=== PATIENT | male | born 1950 | race African-American/Black ===

== ENCOUNTER 2021-03-16 05:10 | Emergency (ER) | payer MEDICAID ==
[~2021-03-16] VITALS: Ht 177.8 cm; Wt 96.0 kg
[2021-03-16] MEDS ORDERED: IBUPROFEN 600MG TABLET PO STA (06:42)
[2021-03-16 07:44] VITALS: BP 120/58
[2021-03-16] MEDS ORDERED: IBUP-2029 MT (10:45)
== END 2021-03-16 11:05 | disposition home or self-care (01) ==
LOC: ER 05:20
DX: M79.652 Pain in left thigh (principal); M79.651 Pain in right thigh; M79.89 Other specified soft tissue disorders; M79.662 Pain in left lower leg; M79.661 Pain in right lower leg; I10 Essential (primary) hypertension
CPT/HCPCS: 93970; 99284

== ENCOUNTER 2024-03-23 13:24 | Inpatient (IN) | payer MEDICAID, OTHER ==
[~2024-03-23] VITALS: Ht 175.3 cm; Wt 100.0 kg
[~2024-03-23 13:24] MED LIST: IBUP-2029 MT
[2024-03-23] MEDS: METHYLPREDNISOLONE SOD SUCC 125MG/2ML (ACT-O-VIAL) IV STA (13:53)
[2024-03-23] MEDS: MAGNESIUM 2 G PREMIX 50 ML IV ONE (13:53)
[2024-03-23 14:00] LABS: BASOPHILS % 0.8 % (0.0-2.0); EOSINOPHILS % 6.7 % (0.0-5.0); HEMATOCRIT. 37.6 % (42.0-52.0); HEMOGLOBIN. 12.5 g/dL (14.0-18.0); MEAN CORPUSCULAR HEMOGLOBIN 29.5 pg (28.0-32.0); MEAN CORPUSCULAR HGB CONC 33.4 g/dL (31.0-37.0); MEAN CORPUSCULAR VOLUME 88.4 fL (80.0-94.0); MEAN PLATELET VOLUME 7.8 fl (7.4-10.4); MONOCYTES % 7.3 % (2.0-8.0); NEUTROPHILS % 55.2 % (40.0-76.0); PLATELET 246 x1000/uL (130-400); RED BLOOD CELL COUNT 4.25 mill/uL (4.7-6.1); RED CELL DISTRIBUTION WIDTH 13.7 % (11.6-14.6); WHITE BLOOD COUNT 5.1 x1000/uL (4.5-11.0)
[2024-03-23 14:05] VITALS: PULSE 82; RESP 24; O2SAT 96
[2024-03-23 14:10] LABS: CHLORIDE 108 mEq/L (98-107); POTASSIUM 3.9 mEq/L (3.5-5.1); SODIUM 139 mEq/L (136-145)
[2024-03-23 14:11] LABS: CARBON DIOXIDE 22 mEq/L (21-32)
[2024-03-23 14:12] LABS: CALCIUM 8.9 mg/dL (8.7-10.4)
[2024-03-23 14:16] LABS: CREATININE 1.3 mg/dL (0.6-1.3); GLUCOSE 176 mg/dL (70-105)
[2024-03-23 14:17] LABS: UREA NITROGEN BLOOD 16 mg/dL (9-23)
[2024-03-23] MEDS: ALBUTEROL (0.083%) 2.5MG/3ML NEB HHN SCH (14:30)
[2024-03-23 14:31] LABS: TROPONIN I HIGH SENSITIVITY 591 ng/L (3.0-53)
[2024-03-23] MEDS: CEFTRIAXONE 1GM/50ML 50 ML IV NR (14:35)
[2024-03-23] MEDS: IPRATROPIUM BROMIDE (0.02%) 0.5MG/2.5ML NEB HHN STA (15:00)
[2024-03-23] MEDS: AZITHROMYCIN 500MG/250ML 250 ML IV NR (15:12)
[2024-03-23] MEDS: ASPIRIN 325MG EC TABLET PO NR (16:13)
[2024-03-23] MEDS ORDERED: ACETAMINOPHEN 325MG TABLET PO PRN (17:45)
[2024-03-23] MEDS ORDERED: GUAIFENESIN 200MG/10ML SUGAR FREE UDC PO PRN (17:45)
[2024-03-23] MEDS ORDERED: DOCUSATE SODIUM 100MG CAPSULE PO PRN (17:45)
[2024-03-23] MEDS ORDERED: MAGNESIUM/ALUMINUM HYDROXIDE/SIMETHICONE 30ML UDC PO PRN (17:45)
[2024-03-23] MEDS ORDERED: DEXTROSE 50% WATER 50ML SYRINGE IV PRN (17:45)
[2024-03-23] MEDS ORDERED: IPRATROPIUM/ALBUTEROL 0.5-3(2.5)MG/3ML NEB HHN PRN (17:45)
[2024-03-23] MEDS ORDERED: ONDANSETRON HCL 4MG/2ML INJ IV PRN (17:45)
[2024-03-23] MEDS ORDERED: CLONIDINE 0.1MG TABLET PO PRN (17:45)
[2024-03-23] MEDS ORDERED: ENOXAPARIN 40MG/0.4ML SYR SUBCUT SCH (18:00)
[2024-03-23] MEDS: BLOOD SUGAR DIAGNOSTIC STRIP TEST SCH (18:00)
[2024-03-23] MEDS ORDERED: NALOXONE HCL 0.4MG/ML VIAL IV PRN (18:30)
[2024-03-23] MEDS: INSULIN LISPRO 100 UNITS/ML SUBCUT SCH (21:00)
[2024-03-23] MEDS: FUROSEMIDE 40MG/4ML VIAL IV NR (21:37)
[2024-03-23] MEDS: ACETAMINOPHEN 325MG TABLET PO PRN (21:38)
[2024-03-23] MEDS: ENOXAPARIN 40MG/0.4ML SYR SUBCUT NR (21:39)
[2024-03-23] MEDS: IOHEXOL-350 100 ML BOTTLE ONE (23:42)
[2024-03-24 01:30] VITALS: BP 129/61; PULSE 79; RESP 18; TEMP 98
[2024-03-24 04:00] VITALS: BP 123/62; PULSE 73; RESP 18; TEMP 96.6
[2024-03-24] MEDS: ENOXAPARIN 30MG/0.3ML SYR SUBCUT SCH (05:57)
[2024-03-24 08:09] VITALS: BP 119/56; PULSE 70; RESP 18; TEMP 97.6
[2024-03-24] MEDS: CEFTRIAXONE 1GM/50ML 50 ML IV SCH (09:23)
[2024-03-24] MEDS: AZITHROMYCIN 500MG/250ML 250 ML IV SCH (09:23)
[2024-03-24] MEDS: FAMOTIDINE 20MG TABLET PO SCH (09:26)
[2024-03-24] MEDS ORDERED: QUET25TA36 PO (09:49)
[2024-03-24] MEDS ORDERED: PROP10TA10 MT (09:49)
[2024-03-24] MEDS ORDERED: IBUP-2030 MT (09:49)
[2024-03-24] MEDS ORDERED: MULT-1146 MT (09:49)
[2024-03-24] MEDS ORDERED: CETI10TA11 MT (09:49)
[2024-03-24] MEDS ORDERED: ESCI20TA37 MT (09:49)
[2024-03-24 10:00] LABS: BASOPHILS % 0.1 % (0.0-2.0); HEMATOCRIT. 34.7 % (42.0-52.0); HEMOGLOBIN. 11.4 g/dL (14.0-18.0); MEAN CORPUSCULAR HGB CONC 32.9 g/dL (31.0-37.0); MEAN CORPUSCULAR VOLUME 88.1 fL (80.0-94.0); MEAN PLATELET VOLUME 8.5 fl (7.4-10.4); MONOCYTES % 2.6 % (2.0-8.0); NEUTROPHILS % 88.3 % (40.0-76.0); PLATELET 239 x1000/uL (130-400); RED BLOOD CELL COUNT 3.94 mill/uL (4.7-6.1); RED CELL DISTRIBUTION WIDTH 14.1 % (11.6-14.6); WHITE BLOOD COUNT 9.7 x1000/uL (4.5-11.0)
[2024-03-24 10:05] LABS: CARBON DIOXIDE 22 mEq/L (21-32); CHLORIDE 105 mEq/L (98-107); SODIUM 138 mEq/L (136-145)
[2024-03-24 10:07] LABS: CALCIUM 8.8 mg/dL (8.7-10.4)
[2024-03-24 10:11] LABS: CREATININE 1.3 mg/dL (0.6-1.3); GLUCOSE 225 mg/dL (70-105)
[2024-03-24 10:12] LABS: LDL CHOLESTEROL 73 mg/dL (5-100); TRIGLYCERIDE 95 mg/dL (0-150); UREA NITROGEN BLOOD 19 mg/dL (9-23)
[2024-03-24 10:13] LABS: CHOLESTEROL 137 mg/dL (<200); HDL CHOLESTEROL 49 mg/dL (>55); THYROID STIMULATING HORMONE 0.38 uIU/mL (0.55-4.78)
[2024-03-24 10:15] LABS: CREATINE KINASE MB FRACTION 3.5 ng/mL (0.5-3.6)
[2024-03-24 11:38] VITALS: BP 106/50; PULSE 72; RESP 19; TEMP 98.7
[2024-03-24 16:05] VITALS: BP 137/65; PULSE 79; RESP 20; TEMP 98.3
[2024-03-24 17:55] LABS: CREATINE KINASE MB FRACTION 3.8 ng/mL (0.5-3.6)
[2024-03-24 17:58] LABS: T4 FREE 0.91 ng/dL (0.89-1.76)
[2024-03-24 18:17] LABS: CLARITY URINE CLEAR (CLEAR); COLOR URINE YELLOW (YELLOW); GLUCOSE URINE NEGATIVE (NEGATIVE); KETONES URINE NEGATIVE (NEGATIVE); LEUKOCYTE ESTERASE URINE NEGATIVE (NEGATIVE); NITRITE URINE NEGATIVE (NEGATIVE); OCCULT BLOOD URINE TRACE (NEGATIVE); PH URINE 6.5 (4.5-8.0); PROTEIN URINE NEGATIVE (NEGATIVE); SPECIFIC GRAVITY URINE 1.013 (1.005-1.030); UROBILINOGEN URINE 0.2 E.U./dL (0.2-1.0)
[2024-03-24 18:26] LABS: *AMPHETAMINES SCREEN URINE NEGATIVE (NEGATIVE); *BARBITURATES SCREEN URINE NEGATIVE (NEGATIVE); *BENZODIAZEPINES SCREEN URINE NEGATIVE (NEGATIVE); *COCAINE SCREEN URINE NEGATIVE (NEGATIVE); CANNABINOID URINE SCREEN NEGATIVE (NEGATIVE); ECSTASY MDMA SCREEN URINE NEGATIVE (NEGATIVE); METHADONE URINE SCREEN NEGATIVE (NEGATIVE); OPIATES URINE SCREEN NEGATIVE (NEGATIVE); PHENCYCLIDINE URINE SCREEN NEGATIVE (NEGATIVE)
[2024-03-24 19:01] LABS: BACTERIA URINE TRACE; RBC URINE 0-2 /hpf (0-2); SQUAMOUS EPITHELIAL CELL URINE RARE /lpf (RARE/1+); WBC URINE 0-2 /hpf (0-2)
[2024-03-24 20:00] VITALS: BP 115/61; PULSE 80; RESP 18; TEMP 98.8
[2024-03-24] MEDS: HYDROCODONE/ACETAMINOPHEN 5/325MG TABLET PO PRN (21:13)
[2024-03-24] MEDS: PROPRANOLOL HCL 10MG TABLET PO SCH (21:13)
[2024-03-25 00:23] VITALS: BP 145/75; PULSE 74; RESP 20; TEMP 97.5
[2024-03-25 04:00] VITALS: BP 138/64; PULSE 71; RESP 18; TEMP 97.5
[2024-03-25] MEDS: GUAIFENESIN 200MG/10ML SUGAR FREE UDC PO SCH (06:19)
[2024-03-25 08:00] VITALS: BP 157/74; PULSE 77; RESP 18; TEMP 97.6
[2024-03-25 12:00] VITALS: BP 142/71; PULSE 73; RESP 20; TEMP 96.7
[2024-03-25 16:00] VITALS: BP 141/70; PULSE 75; RESP 20; TEMP 97.3
[2024-03-25 17:09] LABS: BASOPHILS % 0.7 % (0.0-2.0); EOSINOPHILS % 3.5 % (0.0-5.0); HEMATOCRIT. 33.8 % (42.0-52.0); HEMOGLOBIN. 11.3 g/dL (14.0-18.0); LYMPHOCYTES % 20.7 % (20.0-50.0); MEAN CORPUSCULAR HEMOGLOBIN 29.6 pg (28.0-32.0); MEAN CORPUSCULAR HGB CONC 33.5 g/dL (31.0-37.0); MEAN CORPUSCULAR VOLUME 88.3 fL (80.0-94.0); MEAN PLATELET VOLUME 8.3 fl (7.4-10.4); MONOCYTES % 7.7 % (2.0-8.0); NEUTROPHILS % 67.4 % (40.0-76.0); PLATELET 246 x1000/uL (130-400); RED BLOOD CELL COUNT 3.82 mill/uL (4.7-6.1); RED CELL DISTRIBUTION WIDTH 14.3 % (11.6-14.6); WHITE BLOOD COUNT 8.1 x1000/uL (4.5-11.0)
[2024-03-25 17:17] LABS: CARBON DIOXIDE 25 mEq/L (21-32); CHLORIDE 107 mEq/L (98-107); POTASSIUM 4.1 mEq/L (3.5-5.1); SODIUM 139 mEq/L (136-145)
[2024-03-25 17:19] LABS: CALCIUM 8.8 mg/dL (8.7-10.4)
[2024-03-25 17:23] LABS: CREATININE 1.1 mg/dL (0.6-1.3); GLUCOSE 94 mg/dL (70-105); UREA NITROGEN BLOOD 21 mg/dL (9-23)
[2024-03-25] MEDS: ENOXAPARIN 30MG/0.3ML SYR SUBCUT NR (18:27)
[2024-03-25 20:00] VITALS: BP 147/66; PULSE 78; RESP 19; TEMP 98.5
[2024-03-26] VITALS: BP 150/95; PULSE 79; RESP 19; TEMP 98.8
[2024-03-26 04:00] VITALS: BP 136/93; PULSE 86; RESP 20; TEMP 97.5
[2024-03-26 07:27] LABS: CALCIUM 8.8 mg/dL (8.7-10.4); CARBON DIOXIDE 23 mEq/L (21-32); CHLORIDE 107 mEq/L (98-107); POTASSIUM 3.9 mEq/L (3.5-5.1); SODIUM 138 mEq/L (136-145)
[2024-03-26 07:30] LABS: BASOPHILS % 0.6 % (0.0-2.0); EOSINOPHILS % 3.6 % (0.0-5.0); HEMATOCRIT. 36.3 % (42.0-52.0); HEMOGLOBIN. 11.8 g/dL (14.0-18.0); LYMPHOCYTES % 16.9 % (20.0-50.0); MEAN CORPUSCULAR HEMOGLOBIN 29.2 pg (28.0-32.0); MEAN CORPUSCULAR HGB CONC 32.6 g/dL (31.0-37.0); MEAN CORPUSCULAR VOLUME 89.7 fL (80.0-94.0); MEAN PLATELET VOLUME 8.5 fl (7.4-10.4); MONOCYTES % 10.1 % (2.0-8.0); NEUTROPHILS % 68.8 % (40.0-76.0); PLATELET 248 x1000/uL (130-400); RED BLOOD CELL COUNT 4.04 mill/uL (4.7-6.1); RED CELL DISTRIBUTION WIDTH 14.2 % (11.6-14.6); WHITE BLOOD COUNT 8.7 x1000/uL (4.5-11.0)
[2024-03-26 07:33] LABS: GLUCOSE 94 mg/dL (70-105); UREA NITROGEN BLOOD 17 mg/dL (9-23)
[2024-03-26 08:00] VITALS: BP 132/65; PULSE 75; RESP 18; TEMP 97.5
[2024-03-26] MEDS: QUETIAPINE FUMARATE 25MG TABLET PO SCH (08:19)
[2024-03-26] MEDS: SODIUM CHLORIDE 0.45% 1,000 ML IV ONE ×2 (08:29→11:45)
[2024-03-26] MEDS ORDERED: LIDOCAINE HCL 1% 10 MG/ML 10ML VIAL ONE (08:48)
[2024-03-26] MEDS ORDERED: IODIXANOL 320MG/ML 100 ML BOTTLE IV ONE (08:48)
[2024-03-26] MEDS ORDERED: HEPARIN 1000 UNITS/ML 10ML ONE (08:51)
[2024-03-26] MEDS ORDERED: MIDAZOLAM HCL 2 MG/2 ML VIAL ONE (09:26)
[2024-03-26] MEDS ORDERED: FENTANYL CITRATE/PF 50MCG/ML 2ML VIAL ONE (09:26)
[2024-03-26] MEDS ORDERED: ACETAMINOPHEN 325MG TABLET PO PRN (10:45)
[2024-03-26] MEDS ORDERED: ATROPINE SULFATE 1MG/10ML SYR IV PRN (10:45)
[2024-03-26] MEDS ORDERED: ONDANSETRON HCL 4MG/2ML INJ IV PRN (10:45)
[2024-03-26] MEDS ORDERED: MORPHINE SULFATE 2 MG/ML INJ (NOT FOR IM USE) IV PRN (10:45)
[2024-03-26 11:30] VITALS: BP 108/62; PULSE 75; RESP 20; TEMP 98
[2024-03-26 16:11] VITALS: BP 111/55; PULSE 72; RESP 14; TEMP 98.2
[2024-03-26 20:00] VITALS: BP 145/110; PULSE 90; RESP 18; TEMP 98.2
[2024-03-27] VITALS: BP 129/55; PULSE 63; RESP 15; TEMP 98.3
[2024-03-27 04:00] VITALS: BP 113/45; PULSE 66; RESP 12; TEMP 98.4
[2024-03-27 06:49] LABS: CARBON DIOXIDE 23 mEq/L (21-32); CHLORIDE 108 mEq/L (98-107); POTASSIUM 4.2 mEq/L (3.5-5.1); SODIUM 138 mEq/L (136-145)
[2024-03-27 06:50] LABS: CALCIUM 8.7 mg/dL (8.7-10.4)
[2024-03-27 06:55] LABS: GLUCOSE 114 mg/dL (70-105); UREA NITROGEN BLOOD 17 mg/dL (9-23)
[2024-03-27 07:01] LABS: BASOPHILS % 0.5 % (0.0-2.0); EOSINOPHILS % 6.6 % (0.0-5.0); HEMATOCRIT. 35.2 % (42.0-52.0); HEMOGLOBIN. 11.9 g/dL (14.0-18.0); LYMPHOCYTES % 23.1 % (20.0-50.0); MEAN CORPUSCULAR HEMOGLOBIN 29.7 pg (28.0-32.0); MEAN CORPUSCULAR HGB CONC 33.7 g/dL (31.0-37.0); MEAN PLATELET VOLUME 8.4 fl (7.4-10.4); MONOCYTES % 11.3 % (2.0-8.0); NEUTROPHILS % 58.5 % (40.0-76.0); PLATELET 227 x1000/uL (130-400); RED CELL DISTRIBUTION WIDTH 14.3 % (11.6-14.6); WHITE BLOOD COUNT 6.4 x1000/uL (4.5-11.0)
[2024-03-27 08:38] VITALS: BP 143/68; PULSE 71; RESP 19; TEMP 98.2
[2024-03-27 12:00] VITALS: BP 137/50; PULSE 70; RESP 13; TEMP 98
[2024-03-27] MEDS ORDERED: HEPARIN 1000 UNITS/ML 10ML ONE (12:53)
[2024-03-27] MEDS ORDERED: IODIXANOL 320MG/ML 100 ML BOTTLE IV ONE ×2 (12:53→13:42)
[2024-03-27] MEDS ORDERED: LIDOCAINE HCL 1% 20ML VIAL ONE (12:53)
[2024-03-27] MEDS ORDERED: ASPIRIN/SOD BICARB/CITRIC ACID 324MG TAB EFF ONE (13:11)
[2024-03-27] MEDS ORDERED: FENTANYL CITRATE/PF 50MCG/ML 2ML VIAL ONE (13:11)
[2024-03-27] MEDS ORDERED: MIDAZOLAM HCL 2 MG/2 ML VIAL ONE (13:11)
[2024-03-27] MEDS ORDERED: ATROPINE SULFATE 1MG/10ML SYR IV PRN (14:00)
[2024-03-27] MEDS: SODIUM CHLORIDE 0.45% 1,000 ML IV ONE (14:00)
[2024-03-27] MEDS ORDERED: MORPHINE SULFATE 2 MG/ML INJ (NOT FOR IM USE) IV PRN (14:15)
[2024-03-27] MEDS ORDERED: ONDANSETRON HCL 4MG/2ML INJ IV PRN (14:15)
[2024-03-27 16:00] VITALS: BP 113/47; PULSE 67; RESP 19; TEMP 98.2
[2024-03-27 20:05] VITALS: BP 117/55; PULSE 67; RESP 16; TEMP 97.1
[2024-03-28 00:05] VITALS: BP 130/70; PULSE 65; RESP 13; TEMP 97.3
[2024-03-28 04:05] VITALS: BP 163/80; PULSE 77; RESP 17; TEMP 97.5
[2024-03-28 06:59] LABS: BASOPHILS % 0.6 % (0.0-2.0); EOSINOPHILS % 5.5 % (0.0-5.0); HEMATOCRIT. 35.2 % (42.0-52.0); HEMOGLOBIN. 11.8 g/dL (14.0-18.0); LYMPHOCYTES % 22.1 % (20.0-50.0); MEAN CORPUSCULAR HEMOGLOBIN 29.3 pg (28.0-32.0); MEAN CORPUSCULAR HGB CONC 33.6 g/dL (31.0-37.0); MEAN CORPUSCULAR VOLUME 87.1 fL (80.0-94.0); MEAN PLATELET VOLUME 8.2 fl (7.4-10.4); NEUTROPHILS % 62.8 % (40.0-76.0); PLATELET 246 x1000/uL (130-400); RED BLOOD CELL COUNT 4.04 mill/uL (4.7-6.1); RED CELL DISTRIBUTION WIDTH 13.9 % (11.6-14.6); WHITE BLOOD COUNT 6.4 x1000/uL (4.5-11.0)
[2024-03-28 07:02] LABS: CALCIUM 8.9 mg/dL (8.7-10.4); CARBON DIOXIDE 24 mEq/L (21-32); CHLORIDE 106 mEq/L (98-107); POTASSIUM 3.9 mEq/L (3.5-5.1); SODIUM 138 mEq/L (136-145)
[2024-03-28 07:08] LABS: CREATININE 0.9 mg/dL (0.6-1.3); GLUCOSE 103 mg/dL (70-105); UREA NITROGEN BLOOD 16 mg/dL (9-23)
[2024-03-28 08:00] VITALS: BP 114/63; PULSE 77; RESP 18; TEMP 98.2
[2024-03-28 12:00] VITALS: BP 112/78; PULSE 73; RESP 16; TEMP 98.3
[2024-03-28] MEDS: CITALOPRAM HYDROBROMIDE 10MG TABLET PO SCH (12:34)
[2024-03-28 16:00] VITALS: BP 125/60; PULSE 93; RESP 20; TEMP 98
[2024-03-28 20:00] VITALS: BP 126/89; PULSE 69; RESP 24; TEMP 98.2
[2024-03-29] VITALS: BP 133/70; PULSE 67; RESP 17; TEMP 97.9
[2024-03-29 04:00] VITALS: BP 121/85; PULSE 72; RESP 15; TEMP 98.1
[2024-03-29 08:00] VITALS: BP 129/72; PULSE 72; RESP 11; TEMP 98.2
[2024-03-29] MEDS ORDERED: NALOXONE HCL 0.4MG/ML VIAL IV PRN (08:00)
[2024-03-29] MEDS ORDERED: LORAZEPAM 0.5MG TABLET PO PRN (11:30)
[2024-03-29 12:00] VITALS: BP 107/58; PULSE 71; RESP 18; TEMP 97.8
[2024-03-29] MEDS ORDERED: ALPRAZOLAM 0.25 MG TABLET PO PRN (14:00)
[2024-03-29] MEDS ORDERED: NITROGLYCERIN 0.4MG TABLET SL SL PRN (14:00)
[2024-03-29 16:00] VITALS: BP 107/67; PULSE 75; RESP 18; TEMP 97.9
[2024-03-29] MEDS: ACETAMINOPHEN 325MG TABLET PO PRN (17:05)
[2024-03-29 20:26] VITALS: BP 136/67; PULSE 67; RESP 17; TEMP 98.5
[2024-03-29] MEDS ORDERED: DOCUSATE SODIUM 100MG CAPSULE PO SCH (21:00)
[2024-03-29] MEDS ORDERED: BISACODYL 10MG SUPP PR PRN (21:00)
[2024-03-29] MEDS ORDERED: DIPHENHYDRAMINE 25MG CAPSULE PO PRN (21:00)
[2024-03-29] MEDS ORDERED: CHLORHEXIDINE GLUCONATE 4% EXTERNAL USE TOP SCH (21:00)
[2024-03-30] VITALS: BP 140/73; PULSE 74; RESP 13; TEMP 98.6
[2024-03-30] MEDS: ACETAMINOPHEN 325MG TABLET PO PRN (02:01)
[2024-03-30 04:14] VITALS: BP 122/71; PULSE 77; RESP 18; TEMP 98.5
[2024-03-30 08:00] VITALS: BP 103/89; PULSE 71; RESP 17; TEMP 98
[2024-03-30] MEDS ORDERED: BISACODYL 10MG SUPP PR PRN (09:00)
[2024-03-30] MEDS ORDERED: CHLORHEXIDINE GLUCONATE 4% EXTERNAL USE TOP SCH (09:00)
[2024-03-30 12:00] VITALS: BP 117/60; PULSE 73; RESP 15; TEMP 98.2
[2024-03-30] MEDS ORDERED: DIPHENHYDRAMINE 25MG CAPSULE PO PRN (14:45)
[2024-03-30] MEDS ORDERED: NITROGLYCERIN 0.4MG TABLET SL SL PRN (14:45)
[2024-03-30] MEDS ORDERED: ALPRAZOLAM 0.25 MG TABLET PO PRN (14:55)
[2024-03-30 16:00] VITALS: BP 115/70; PULSE 71; RESP 15; TEMP 98.4
[2024-03-30 20:00] VITALS: BP 121/70; PULSE 73; RESP 16; TEMP 97.5
[2024-03-30] MEDS ORDERED: ASCORBIC ACID 500 MG TABLET PO SCH (21:00)
[2024-03-30] MEDS ORDERED: ALLOPURINOL 300 MG TABLET PO SCH (21:00)
[2024-03-30] MEDS: ASCORBIC ACID 500 MG TABLET PO SCH (21:27)
[2024-03-30] MEDS: DOCUSATE SODIUM 100MG CAPSULE PO SCH (21:28)
[2024-03-30] MEDS: ALLOPURINOL 300 MG TABLET PO SCH (21:28)
[2024-03-30] MEDS: CHLORHEXIDINE GLUCONATE 4% EXTERNAL USE TOP SCH (21:37)
[2024-03-31] VITALS (17 sets, daily range): BP systolic 67–146; BP diastolic 35–46; PULSE 68–105; RESP 11–30; TEMP 96.5–98.3; O2SAT 96
[2024-03-31] MEDS: BLOOD SUGAR DIAGNOSTIC STRIP TEST NR (03:48)
[2024-03-31 03:59] LABS: BASOPHILS % 1.2 % (0.0-2.0); HEMATOCRIT. 35.6 % (42.0-52.0); HEMOGLOBIN. 11.9 g/dL (14.0-18.0); MEAN CORPUSCULAR HGB CONC 33.3 g/dL (31.0-37.0); MEAN CORPUSCULAR VOLUME 87.2 fL (80.0-94.0); MEAN PLATELET VOLUME 7.5 fl (7.4-10.4); MONOCYTES % 10.7 % (2.0-8.0); NEUTROPHILS % 53.1 % (40.0-76.0); PLATELET 252 x1000/uL (130-400); RED BLOOD CELL COUNT 4.09 mill/uL (4.7-6.1); RED CELL DISTRIBUTION WIDTH 14.1 % (11.6-14.6); WHITE BLOOD COUNT 6.1 x1000/uL (4.5-11.0)
[2024-03-31 04:12] LABS: CARBON DIOXIDE 27 mEq/L (21-32); CHLORIDE 106 mEq/L (98-107); POTASSIUM 4.3 mEq/L (3.5-5.1); SODIUM 138 mEq/L (136-145)
[2024-03-31 04:13] LABS: CALCIUM 8.8 mg/dL (8.7-10.4); PROTHROMBIN TIME 10.9 sec (9.6-11.0)
[2024-03-31 04:17] LABS: GLUCOSE 103 mg/dL (70-105)
[2024-03-31 04:18] LABS: UREA NITROGEN BLOOD 15 mg/dL (9-23)
[2024-03-31] MEDS ORDERED: AMINOCAPROIC ACID 5,000 MG in SODIUM CHLORIDE 0.9% 250 ML IV NR (05:00)
[2024-03-31] MEDS ORDERED: CEFAZOLIN 2GM/100ML 100 ML IV NR (05:00)
[2024-03-31] MEDS ORDERED: INSULIN REGULAR 100 U/100 ML PREMIX IV PRN (05:00)
[2024-03-31] MEDS ORDERED: DOBUTAMINE 250 MG/250 ML PREMIX IV PRN (05:00)
[2024-03-31] MEDS ORDERED: EPINEPHRINE 5 MG in DEXT 5% WATER 250 ML IV PRN (05:00)
[2024-03-31] MEDS ORDERED: NICARDIPINE 40MG/200ML PREMIX 200 ML IV PRN (05:00)
[2024-03-31] MEDS ORDERED: DEL NIDO CARDIOPLEGIA 1,000 ML (PREMIX) IV ONE ×4 (05:00→11:45)
[2024-03-31] MEDS ORDERED: HEPARIN 1000 UNITS/ML 10ML ONE ×3 (06:53→17:01)
[2024-03-31] MEDS ORDERED: NITROGLYCERIN 50MG PREMIX 250 ML IV ONE (06:53)
[2024-03-31] MEDS ORDERED: SEVOFLURANE 250 ML LIQUID INH ONE (06:53)
[2024-03-31] MEDS: CHLORHEXIDINE GLUCONATE 4% EXTERNAL USE TOP SCH (07:00)
[2024-03-31] MEDS ORDERED: POLYMYXIN B SULFATE 500000 UNITS/VIAL ONE ×2 (07:03→18:02)
[2024-03-31] MEDS ORDERED: THROMBIN (BOVINE) 5000 UNITS/VIAL TOP ONE ×4 (07:04→17:36)
[2024-03-31] MEDS ORDERED: LIDOCAINE HCL 2% 5ML SYRINGE IV ONE (07:38)
[2024-03-31] MEDS ORDERED: METOCLOPRAMIDE HCL 10MG/2ML VIAL ONE (07:38)
[2024-03-31] MEDS ORDERED: ROCURONIUM BROMIDE 10MG/ML VIAL 5ML IV ONE ×2 (07:38→17:04)
[2024-03-31] MEDS ORDERED: ONDANSETRON HCL 4MG/2ML INJ ONE (07:38)
[2024-03-31] MEDS ORDERED: DEXAMETHASONE 4MG/ML 1ML VIAL ONE (07:38)
[2024-03-31] MEDS ORDERED: FENTANYL CITRATE/PF 50MCG/ML 5ML VIAL ONE ×2 (07:38→07:39)
[2024-03-31] MEDS ORDERED: ETOMIDATE 2MG/ML 10ML VIAL IV ONE (07:38)
[2024-03-31] MEDS ORDERED: MIDAZOLAM HCL 5 MG/5 ML VIAL ONE ×2 (07:39)
[2024-03-31] MEDS ORDERED: EPHEDRINE SULFATE 50MG/ML VIAL ONE ×2 (08:01→10:08)
[2024-03-31] MEDS ORDERED: AMIODARONE HCL 50MG/ML 3ML VIAL IV ONE ×2 (08:01→14:16)
[2024-03-31] MEDS ORDERED: PHENYLEPHRINE HCL 10 MG/ML 1ML (IV VIAL) IV ONE ×7 (08:04→16:40)
[2024-03-31] MEDS ORDERED: FENTANYL CITRATE/PF 50MCG/ML 2ML VIAL ONE ×5 (09:41→09:44)
[2024-03-31] MEDS ORDERED: ALBUMIN HUMAN 25GM/100ML (25%) IV ONE (10:00)
[2024-03-31] MEDS ORDERED: SODIUM BICARBONATE 8.4% 50MEQ/50ML SYR IV ONE ×4 (11:22→17:35)
[2024-03-31] MEDS ORDERED: CALCIUM CHLORIDE 1GM/10ML SYR IV ONE ×3 (11:24→16:45)
[2024-03-31] MEDS ORDERED: ESMOLOL HCL 10MG/ML 10ML VIAL IV ONE (11:57)
[2024-03-31] MEDS ORDERED: KCL 10MEQ/50ML PREMIX 150 ML IV PRN (12:45)
[2024-03-31] MEDS ORDERED: MAGNESIUM SULFATE 3 GM in DEXT 5% WATER 100 ML IV PRN (12:45)
[2024-03-31] MEDS ORDERED: DEXTROSE 50% WATER 50ML SYRINGE IV PRN ×2 (12:45)
[2024-03-31] MEDS ORDERED: MAGNESIUM 1 G PREMIX 100 ML IV PRN (12:45)
[2024-03-31] MEDS ORDERED: KCL 10MEQ/50ML PREMIX 100 ML IV PRN (12:45)
[2024-03-31] MEDS ORDERED: MILRINONE 20MG-DEXT 5% PREMIX 100 ML IV ONE ×2 (14:16→17:52)
[2024-03-31] MEDS ORDERED: CEFAZOLIN SODIUM 1000MG/VIAL ONE ×4 (14:16→16:51)
[2024-03-31] MEDS ORDERED: AMIODARONE HCL 900 MG in DEXT 5% WATER 500 ML IV SCH (14:30)
[2024-03-31] MEDS ORDERED: VASOPRESSIN 20 UNIT/ML 1ML ONE (16:10)
[2024-03-31] MEDS ORDERED: DOBUTAMINE 250MG PREMIX 250 ML IV ONE (17:53)
[2024-03-31] MEDS ORDERED: METHYLENE BLUE 50MG/10ML AMP IV ONE (18:06)
[2024-03-31] MEDS ORDERED: FUROSEMIDE 20MG/2ML VIAL ONE ×2 (18:37)
[2024-03-31] MEDS ORDERED: PROTAMINE SULFATE 10MG/ML VIAL 25ML IV ONE (18:43)
[2024-03-31] MEDS: METHYLENE BLUE 50MG/10ML AMP IV NR (20:00)
[2024-03-31] MEDS: ALBUMIN HUMAN 25GM/500ML (5%) IV NR (20:00)
[2024-03-31] MEDS: VASOPRESSIN 20 UNITS in SODIUM CHLORIDE 0.9% 100 ML IV PRN (20:00)
[2024-03-31 20:13] LABS: BG BASE EXCESS -9.8 mmol/L (-2.0-2.0); BG CARBOXYHEMOGLOBIN 0.4 % (0.5-1.5); BG FRACTION INSPIRED OXYGEN 100; BG HCO3 ACT 18.9 mmol/L (22.0-26.0); BG METHEMOGLOBIN 0.4 % (0.0-1.5); BG OXYGEN SATURATION 80.8 % (92.0-98.5); BG OXYHEMOGLOBIN 80.2 % (94.0-97.0); BG PCO2 54.4 mmHg (35.0-45.0); BG PH 7.158 (7.350-7.450); BG SAMPLE SITE ALINE; BG TOTAL HEMOGLOBIN 10.8 g/dL (12.0-18.0); BG VENT MODE VENT - AC
[2024-03-31] MEDS: ALBUMIN HUMAN 12.5G/250ML (5%) IV NR (20:15)
[2024-03-31] MEDS ORDERED: METHYLENE BLUE 1% VIAL 1ML IV ONE (20:15)
[2024-03-31] MEDS: DIPHENHYDRAMINE 50MG/ML VIAL IV NR (20:26)
[2024-03-31] MEDS: SODIUM BICARBONATE 8.4% 50MEQ/50ML SYR IV NR ×2 (20:28→21:45)
[2024-03-31] MEDS: NALOXONE HCL 0.4MG/ML 1ML VIAL IV NR (20:28)
[2024-03-31] MEDS: NALOXONE HCL 0.4MG/ML 1ML VIAL IV ONE (20:29)
[2024-03-31] MEDS: CALCIUM CHLORIDE 1GM/10ML SYR IV ONE (20:29)
[2024-03-31] MEDS: KCL 10MEQ/50ML PREMIX 200 ML IV PRN (20:30)
[2024-03-31] MEDS: HYDROCORTISONE SOD SUCCINATE 100 MG/2 ML VIAL IV NR (20:30)
[2024-03-31] MEDS: CALCIUM CHLORIDE 1GM/10ML SYR IV NR (20:30)
[2024-03-31] MEDS: FAMOTIDINE 20MG/2ML VIAL IV NR (20:34)
[2024-03-31 20:39] LABS: BG DEOXYHEMOGLOBIN 56.6 % (0.0-5.0); BG FRACTION INSPIRED OXYGEN 100; BG OXYGEN SATURATION 42.2 % (92.0-98.5); BG OXYHEMOGLOBIN 41.4 % (94.0-97.0); BG PO2 < 30.3 mmHg (75.0-100.0); BG SAMPLE SITE CL; BG TOTAL HEMOGLOBIN 9.4 g/dL (12.0-18.0); BG VENT MODE VENT - AC
[2024-03-31 20:42] LABS: BG BASE EXCESS -0.3 mmol/L (-2.0-2.0); BG HCO3 ACT 26.6 mmol/L (22.0-26.0); BG PCO2 55.4 mmHg (35.0-45.0); BG PH 7.299 (7.350-7.450)
[2024-03-31] MEDS: FLUMAZENIL 0.1 MG/ML 5ML VIAL IV NR (20:45)
[2024-03-31] MEDS: VECURONIUM BROMIDE 10 MG/VIAL IV NR (20:46)
[2024-03-31] MEDS: BLOOD SUGAR DIAGNOSTIC STRIP TEST SCH (21:00)
[2024-03-31] MEDS: EPINEPHRINE 10 MG in SODIUM CHLORIDE 0.9% 250 ML IV PRN (21:23)
[2024-03-31] MEDS: DEXT 5% IV NR ×2 (21:24→21:33)
[2024-03-31] MEDS: CALCIUM CHLORIDE IV NR (21:24)
[2024-03-31] MEDS: WATER IV NR ×2 (21:24→21:33)
[2024-03-31] MEDS: PHENYLEPHRINE 100 MG in DEXT 5% WATER 250 ML IV PRN (21:32)
[2024-03-31] MEDS: METHYLENE BLUE IV NR (21:33)
[2024-03-31 21:34] LABS: BG BASE EXCESS -6.5 mmol/L (-2.0-2.0); BG CARBOXYHEMOGLOBIN 0.6 % (0.5-1.5); BG FRACTION INSPIRED OXYGEN 100; BG HCO3 ACT 18.1 mmol/L (22.0-26.0); BG METHEMOGLOBIN 0.2 % (0.0-1.5); BG OXYGEN SATURATION 90.9 % (92.0-98.5); BG OXYHEMOGLOBIN 90.2 % (94.0-97.0); BG PCO2 32.5 mmHg (35.0-45.0); BG PH 7.364 (7.350-7.450); BG PO2 65.8 mmHg (75.0-100.0); BG SAMPLE SITE ALINE; BG TOTAL HEMOGLOBIN 9.5 g/dL (12.0-18.0); BG VENT MODE VENT - AC
[2024-03-31 21:41] LABS: BASOPHILS % 0.2 % (0.0-2.0); EOSINOPHILS % 0.2 % (0.0-5.0); HEMOGLOBIN. 8.6 g/dL (14.0-18.0); LYMPHOCYTES % 14.1 % (20.0-50.0); MEAN CORPUSCULAR HEMOGLOBIN 29.2 pg (28.0-32.0); MEAN CORPUSCULAR HGB CONC 33.2 g/dL (31.0-37.0); MEAN CORPUSCULAR VOLUME 88.1 fL (80.0-94.0); MEAN PLATELET VOLUME 8.5 fl (7.4-10.4); MONOCYTES % 7.2 % (2.0-8.0); NEUTROPHILS % 78.3 % (40.0-76.0); PLATELET 80 x1000/uL (130-400); RED BLOOD CELL COUNT 2.95 mill/uL (4.7-6.1); RED CELL DISTRIBUTION WIDTH 15.2 % (11.6-14.6)
[2024-03-31] MEDS: DOPAMINE 400 MG PREMIX 250 ML IV PRN (21:41)
[2024-03-31] MEDS: NOREPINEPHRINE 8MG/250ML PMX 250 ML IV PRN (21:41)
[2024-03-31 21:51] LABS: CHLORIDE 108 mEq/L (98-107)
[2024-03-31 22:03] LABS: CALCIUM 12.5 mg/dL (8.7-10.4); CARBON DIOXIDE 24 mEq/L (21-32); GLUCOSE 208 mg/dL (70-105); UREA NITROGEN BLOOD 26 mg/dL (9-23)
[2024-03-31 22:10] LABS: POTASSIUM 2.8 mEq/L (3.5-5.1); SODIUM 161 mEq/L (136-145)
[2024-03-31 22:11] LABS: CREATININE 2.2 mg/dL (0.6-1.3)
[2024-04-01] MEDS: INSULIN REGULAR 100U/100ML PMX 100 ML IV SCH (01:51)
[2024-04-01] MEDS: MAGNESIUM 2 G PREMIX 50 ML IV PRN (02:06)
[2024-04-01] MEDS ORDERED: POTASSIUM CHLORIDE 10MEQ IN WATER 50ML PREMIX IV ONE (05:00)
== END 2024-04-01 05:03 | DRG 163 ==
LOC: EDBD 13:24 → ER 14:07 → 7WST 15:56 → EDBEDREQ 16:08 → EDBEDREQTM 16:08 → 3WST 03-26 11:19 → CVICU 03-31 10:34
PROVIDERS: ADMIT Hospitalist; ATTEND Hospitalist
PROC: 5A09357 Assistance with Respiratory Ventilation, Less than 24 Consecutive Hours, Continuous Positive Airway Pressure (ICD-10-PCS; principal; 2024-03-23)
PROC: 02JA3ZZ Inspection of Heart, Percutaneous Approach (ICD-10-PCS; 2024-03-26)
PROC: B2111ZZ Fluoroscopy of Multiple Coronary Arteries using Low Osmolar Contrast (ICD-10-PCS; 2024-03-31)
PROC: 5A02210 Assistance with Cardiac Output using Balloon Pump, Continuous (ICD-10-PCS; 2024-03-31)
PROC: 02RF08Z Replacement of Aortic Valve with Zooplastic Tissue, Open Approach (ICD-10-PCS; 2024-03-31)
PROC: 5A1935Z Respiratory Ventilation, Less than 24 Consecutive Hours (ICD-10-PCS; 2024-03-31)
PROC: 0BH17EZ Insertion of Endotracheal Airway into Trachea, Via Natural or Artificial Opening (ICD-10-PCS; 2024-03-31)
PROC: B24BZZ4 Ultrasonography of Heart with Aorta, Transesophageal (ICD-10-PCS; 2024-03-31)
PROC: 021009W Bypass Coronary Artery, One Artery from Aorta with Autologous Venous Tissue, Open Approach (ICD-10-PCS; 2024-03-31)
PROC: 06BP0ZZ Excision of Right Saphenous Vein, Open Approach (ICD-10-PCS; 2024-03-31)
PROC: 5A1221Z Performance of Cardiac Output, Continuous (ICD-10-PCS; 2024-03-31)
PROC: 04QK0ZZ Repair Right Femoral Artery, Open Approach (ICD-10-PCS; 2024-03-31)
PROC: 30233K1 Transfusion of Nonautologous Frozen Plasma into Peripheral Vein, Percutaneous Approach (ICD-10-PCS; 2024-03-31)
PROC: 30233N1 Transfusion of Nonautologous Red Blood Cells into Peripheral Vein, Percutaneous Approach (ICD-10-PCS; 2024-03-31)
PROC: 30233R1 Transfusion of Nonautologous Platelets into Peripheral Vein, Percutaneous Approach (ICD-10-PCS; 2024-03-31)
PROC: 4A023N7 Measurement of Cardiac Sampling and Pressure, Left Heart, Percutaneous Approach (ICD-10-PCS; 2024-03-31)
PROC: 5A12012 Performance of Cardiac Output, Single, Manual (ICD-10-PCS; 2024-03-31)
DX: I35.0 Nonrheumatic aortic (valve) stenosis (principal); J96.01 Acute respiratory failure with hypoxia; I11.0 Hypertensive heart disease with heart failure; I50.23 Acute on chronic systolic (congestive) heart failure; I21.A1 Myocardial infarction type 2; E66.01 Morbid (severe) obesity due to excess calories; Z86.74 Personal history of sudden cardiac arrest; Z00.6 Encounter for examination for normal comparison and control in clinical research program; Z68.35 Body mass index [BMI] 35.0-35.9, adult; J44.1 Chronic obstructive pulmonary disease with (acute) exacerbation; J20.9 Acute bronchitis, unspecified; E78.5 Hyperlipidemia, unspecified; R73.9 Hyperglycemia, unspecified; F41.9 Anxiety disorder, unspecified; N39.41 Urge incontinence; M51.26 Other intervertebral disc displacement, lumbar region; F32.9 Major depressive disorder, single episode, unspecified; Z79.899 Other long term (current) drug therapy; Z87.891 Personal history of nicotine dependence; Z95.3 Presence of xenogenic heart valve; I49.01 Ventricular fibrillation; I47.20 Ventricular tachycardia, unspecified; I46.9 Cardiac arrest, cause unspecified
CPT/HCPCS: 36415; 36600; 71045; 71275; 80048; 80061; 80305; 81003; 82375; 82550; 82553; 82805; 82962; 83036; 83735; 83880; 84145; 84153; 84439; 84443; 84481; 84484; 85025; 85379; 86850; 86900; 86920; 86927; 87070; 87075; 88304; 88311; 93005; 93306; 93458; 93880; 94002; 94644; 97162; 97166; 99291; C1760; C1769; C1887; C1893; J0282; J0456; J0690; J0696; J1100; J1200; J1250; J1265; J1644; J1650; J1720; J1815; J1940; J2250; J2260; J2310; J2370; J2405; J2720; J2765; J2919; J3010; J3475; J3480; J3490; J7050; J7060; P9016; P9017; P9034; P9041; P9047; Q9967; Q9968